=== PATIENT | female | born 1965 | race Caucasian/White ===

== ENCOUNTER → 2016-09-09 | Outpatient (CLI) | payer BC ==
[~2016-09-09] VITALS: Ht 180.3 cm; Wt 77.1 kg
[~2016-09-09] MED LIST: LORAZEPAM0.5 MG PO; VITAMIN D-32000 UNI2 PO
== END | disposition home or self-care (01) ==
LOC: AMB 06:43
PROC: 0DBL8ZX Excision of Transverse Colon, Via Natural or Artificial Opening Endoscopic, Diagnostic (ICD-10-PCS; principal; 2016-09-09)
DX: K63.5 Polyp of colon (principal); R10.84 Generalized abdominal pain; K64.8 Other hemorrhoids; K59.09 Other constipation; D64.9 Anemia, unspecified; K30 Functional dyspepsia; Z82.49 Family history of ischemic heart disease and other diseases of the circulatory system; Z80.0 Family history of malignant neoplasm of digestive organs; Z88.0 Allergy status to penicillin; Z88.1 Allergy status to other antibiotic agents
CPT/HCPCS: 88305